=== PATIENT | female | born 1945 | race Caucasian/White ===

== ENCOUNTER 2019-03-27 06:49 | Observation (INO) | payer MEDICAID, MEDICARE ==
[~2019-03-27] VITALS: Ht 167.6 cm; Wt 108.0 kg
[~2019-03-27 06:49] MED LIST: ALBU90AE INH; ASPI-496 PO; BUPIVACAINE/PF 0.5% ONE; EPINEPHRINE 1 MG/ML, 1ML ONE; FERR324T5 PO; FURO20TA3 PO; GUSE100A SC; LIDOCAINE 1%-EPI 1:100K, 20ML ONE; LISI-167 PO; LORA-445 PO; METF500T17 PO; METO25TA35 PO; SIMV40TA3 PO
[2019-03-27] MEDS ORDERED: LACTATED RINGERS 1,000 ML IV SCH (07:21)
[2019-03-27] MEDS ORDERED: MIDAZOLAM 1 MG/ML, 2ML ONE (07:46)
[2019-03-27] MEDS ORDERED: FENTANYL PF 100 MCG/2ML ONE ×2 (07:46→10:47)
[2019-03-27] MEDS ORDERED: BUDE10.2 INH (08:05)
[2019-03-27] MEDS ORDERED: PARO10TA3 PO (08:05)
[2019-03-27] MEDS ORDERED: NITR0.4T28 SL (08:05)
[2019-03-27] MEDS ORDERED: TRAZ50TA66 PO (08:05)
[2019-03-27] MEDS ORDERED: ACETAMINOPHEN 500 MG TABLET ONE (08:09)
[2019-03-27] MEDS ORDERED: GABAPENTIN 300 MG CAPSULE ONE (08:09)
[2019-03-27] MEDS ORDERED: TRANEXAMIC ACID 100 MG/ML, 10ML ONE ×2 (08:30)
[2019-03-27] MEDS ORDERED: FENTANYL PF 250 MCG/5ML ONE (09:25)
[2019-03-27] MEDS ORDERED: ALBUTEROL SULFATE 2.5 MG/3 ML NPPB PRN (09:30)
[2019-03-27] MEDS ORDERED: DIAZEPAM 5 MG/ML, 2ML IVPush PRN (09:30)
[2019-03-27] MEDS ORDERED: OXYcodone 5 MG/5 ML ORAL.SOL UDC PO PRN (09:30)
[2019-03-27] MEDS ORDERED: HYDROmorphone 1 MG/ML, 1ML INJ IVPush PRN (09:30)
[2019-03-27] MEDS ORDERED: MEPERIDINE/PF 25MG/0.5ML IVPush PRN (09:30)
[2019-03-27] MEDS ORDERED: ACETAMINOPHEN 325 MG TABLET PO PRN (09:30)
[2019-03-27] MEDS ORDERED: PROMETHAZINE 25 MG/ML, 1ML IV PRN (09:30)
[2019-03-27] MEDS ORDERED: LABETALOL 5MG/ML, 20ML IV PRN (09:30)
[2019-03-27] MEDS ORDERED: hydrALAzine 20 MG/ML, 1ML IV PRN (09:30)
[2019-03-27] MEDS ORDERED: KETOROLAC 30 MG/1 ML IV PRN (09:30)
[2019-03-27] MEDS ORDERED: SUCCINYLCHOLINE 20 MG/ML, 10ML ONE (10:11)
[2019-03-27] MEDS ORDERED: GLYCOPYRROLATE 0.2MG/1ML, 5ML ONE (10:11)
[2019-03-27] MEDS ORDERED: ROCURONIUM 10MG/ML,5ML ONE (10:11)
[2019-03-27] MEDS ORDERED: CEFAZOLIN 1,000 MG ONE (10:11)
[2019-03-27] MEDS ORDERED: DEXAMETHASONE 4 MG/ML, 1ML ONE (10:11)
[2019-03-27] MEDS ORDERED: ONDANSETRON 2MG/ML, 2ML ONE (10:11)
[2019-03-27] MEDS ORDERED: PROPOFOL 10 MG/ML, 20ML ONE (10:11)
[2019-03-27] MEDS ORDERED: NEOSTIGMINE 1 MG/ML, 10ML ONE (10:11)
[2019-03-27] MEDS ORDERED: ONDANSETRON 2MG/ML, 2ML IVPush PRN (10:30)
[2019-03-27] MEDS ORDERED: DIPHENHYDRAMINE 25 MG CAPSULE PO PRN (10:30)
[2019-03-27] MEDS ORDERED: TEMPLATE NON-FORMULARY MED. (Albuterol Sulfate (Proair Respiclick) 0 PUFF) INH PRN (10:30)
[2019-03-27] MEDS ORDERED: LORazepam 1MG TABLET PO PRN (10:30)
[2019-03-27] MEDS ORDERED: BISACODYL 10 MG SUPP PR PRN (10:30)
[2019-03-27] MEDS ORDERED: TRAZODONE 50MG TABLET PO PRN (10:30)
[2019-03-27] MEDS ORDERED: MORPHINE SULFATE 4 MG/ML, 1ML IVPush PRN (10:30)
[2019-03-27] MEDS ORDERED: SENNA/DOCUSATE TABLET PO PRN (10:30)
[2019-03-27] MEDS ORDERED: OXYcodone 5 MG/5 ML ORAL.SOL UDC ONE (10:47)
[2019-03-27] MEDS: FENTANYL PF 100 MCG/2ML IV PRN ×2 (10:50→11:00)
[2019-03-27 13:20] VITALS: BP 149/78
[2019-03-27] MEDS: OXYcodone IR 5MG TABLET PO SCH ×3 (15:08→20:58)
[2019-03-27] MEDS: ACETAMINOPHEN 500 MG TABLET PO SCH ×3 (15:09→22:30)
[2019-03-27] MEDS: CEFAZOLIN PMX 1GM/50ML 50 ML IVPB SCH (18:21)
[2019-03-27] MEDS: SODIUM CHLORIDE 0.9% 1,000 ML IV SCH ×2 (18:21→20:20)
[2019-03-27 19:19] VITALS: BP 131/67
[2019-03-27] MEDS: metFORMIN 500 MG TABLET PO SCH (20:55)
[2019-03-27] MEDS: DOCUSATE 100 MG CAPSULE PO SCH (20:56)
[2019-03-27] MEDS: TEMPLATE NON-FORMULARY MED. (Budesonide/Formoterol Fumarate (Symbicort 160-4.5 Mcg Inhaler INH SCH (21:00)
[2019-03-27] MEDS ORDERED: SIMVASTATIN 40 MG TABLET PO SCH (21:00)
[2019-03-28 00:11] VITALS: BP 132/72
[2019-03-28] MEDS: CEFAZOLIN PMX 1GM/50ML 50 ML IVPB SCH (02:34)
[2019-03-28] MEDS: OXYcodone IR 5MG TABLET PO SCH ×3 (02:55→16:09)
[2019-03-28] MEDS: SODIUM CHLORIDE 0.9% 1,000 ML IV SCH (04:22)
[2019-03-28] MEDS: ACETAMINOPHEN 500 MG TABLET PO SCH ×3 (04:30→16:09)
[2019-03-28 04:46] VITALS: BP 110/63
[2019-03-28] MEDS ORDERED: ASPIRIN 325 MG TABLET PO SCH (06:00)
[2019-03-28 07:16] VITALS: BP 146/89
[2019-03-28] MEDS ORDERED: ASPIRIN 81 MG TABLET EC PO SCH (09:00)
[2019-03-28] MEDS ORDERED: LISINOPRIL 10 MG TABLET PO SCH (09:00)
[2019-03-28] MEDS ORDERED: TEMPLATE NON-FORMULARY MED. (Ferrous Sulfate** 324 MG) PO SCH (09:00)
[2019-03-28] MEDS ORDERED: FUROSEMIDE 20 MG TABLET PO SCH (09:00)
[2019-03-28] MEDS ORDERED: METOPROLOL TARTRATE 25 MG TABLET PO SCH (09:00)
[2019-03-28] MEDS ORDERED: PAROXETINE 10 MG TABLET PO SCH (09:00)
[2019-03-28] MEDS: DOCUSATE 100 MG CAPSULE PO SCH (10:22)
[2019-03-28] MEDS: metFORMIN 500 MG TABLET PO SCH (10:22)
[2019-03-28] MEDS: TEMPLATE NON-FORMULARY MED. (Budesonide/Formoterol Fumarate (Symbicort 160-4.5 Mcg Inhaler INH SCH (10:23)
[2019-03-28 12:19] VITALS: BP 147/66
[2019-03-28] MEDS ORDERED: FLU VACC QS2019-20 36MOS UP/PF 0.5 ML IM-VACC ONE (14:30)
[2019-03-28 16:30] VITALS: BP 143/66
== END 2019-03-28 17:30 | disposition home or self-care (01) ==
LOC: OUT 06:49 → ORIP 10:20 → 4NE 12:27
PROVIDERS: ADMIT Orthopaedic Surgery; ATTEND Orthopaedic Surgery
DX: M17.11 Unilateral primary osteoarthritis, right knee (principal); I10 Essential (primary) hypertension; I25.10 Atherosclerotic heart disease of native coronary artery without angina pectoris; I25.2 Old myocardial infarction; J44.9 Chronic obstructive pulmonary disease, unspecified; E66.01 Morbid (severe) obesity due to excess calories; E11.9 Type 2 diabetes mellitus without complications; Z85.41 Personal history of malignant neoplasm of cervix uteri; Z23 Encounter for immunization
CPT/HCPCS: 27447; 73560; 82962; 90686; 96365; 96366; 97110; 97116; 97162; 97530; C1713; C1776; G0008; G0378; J0330; J0690; J1100; J2250; J2405; J2704; J3010; J7030; J7120; S0020; J0171; J2710; J3490